=== PATIENT | male | born 1995 | race Caucasian/White ===

== ENCOUNTER 2018-04-15 12:02 | Emergency (ER) | payer MEDICAID ==
[2018-04-15] MEDS: HYDROCODONE/APAP (5/325) TAB PO (13:07)
== END 2018-04-15 14:18 | disposition home or self-care (01) ==
LOC: FTE 12:02
DX: S01.511A Laceration without foreign body of lip, initial encounter (principal); W22.8XXA Striking against or struck by other objects, initial encounter; Y92.89 Other specified places as the place of occurrence of the external cause
CPT/HCPCS: 99283; Z7502